=== PATIENT | male | born 1960 | race Caucasian/White ===

== ENCOUNTER 2021-04-02 07:13 | Emergency (ER) | payer OTHER ==
--- NOTE | 2021-04-02 10:31 | RAD REPORT ---
EXAM DESCRIPTION: US - Extremity Nonvascular Limited - 04/02/2021 9:26 am CLINICAL HISTORY: r/o abscess Pain and swelling COMPARISON: No comparisons TECHNIQUE: Real-time sonographic evaluation of the area of interest was performed. FINDINGS: There appears to be a complex 15 mm fluid collection in the area of interest adjacent to a nd abutting bony structures. This likely indicates a joint effusion or septic joint.
--- NOTE | 2021-04-02 10:34 | RAD REPORT ---
EXAM DESCRIPTION: RAD - Hand Left 3 View - 04/02/2021 8:00 am CLINICAL HISTORY: Pain;Swelling COMPARISON: No comparisons FINDINGS: Soft tissue swelling is seen along the posterior aspect of the hand. No soft tissue gas is present. No fracture, dislocation or radiographic findings of osteomyelitis.
[2021-04-02 11:07] LABS: Absolute Lymphocytes (CBC) 1.3 K/uL (0.7-4.9); Basophils % 0.3 % (0-1.3); Hematocrit 47.6 % (39.6-49.0); MPV 7.9 fL (7.6-11.3); RBC Red Blood Cell Count 5.57 M/uL (4.33-5.43)
[2021-04-02 11:25] LABS: C-Reactive Protein 8.86 mg/L (<3.00); Potassium 4.4 mmol/L (3.5-5.1)
--- NOTE | 2021-04-02 12:32 | EDPHYS ---
Physician Documentation [facility] Name: Faheem Wang Age: 61 yrs Sex: Male : 1960 Arrival Date: 04/02/2021 Time: 07:15 Bed 6 Private MD: Bakari Motley R ED Physician Victoriano Lopez HPI: 04/02 07:27 This 61 yrs old Male presents to ER via Unassigned with complaints of Hand kb Swelling. 07:27 The patient or guardian reports pain, swelling. The complaints affect the dorsal aspect kb of proximal phalanx of left middle finger and dorsum of left hand. Context: [place]. Onset: The symptoms/episode began/occurred 2 week(s) ago, and became worse 1 week(s) ago. Modifying factors: The symptoms are alleviated by nothing, the symptoms are aggravated by movement. Associated signs and symptoms: The patient has no apparent associated signs or symptoms. Severity of symptoms: At their worst the symptoms were moderate, in the emergency department the symptoms are unchanged. The patient has not experienced similar symptoms in the past. The patient has been recently seen by a physician: the ER physician, out of Town. Pt reports he was "finned" by a catfish 2 weeks ago onto left middle finger. Reports area started swelling last week after flying to another state. Went to an ER while out of town and they gave him doxycycline. States he got back into town last night so he came in this morning to get it looked at again.. Historical: - Allergies: 07:31 PENICILLINS; ll1 - PMHx: 07:31 None; ll1 - PSHx: 07:31 hernia repair; neck fusion; Appendectomy; ll1 - Immunization history:: Client reports having NOT received the Covid vaccine. Flu vaccine is not up to date. - Social history:: Smoking status: Patient denies any tobacco usage or history of. ROS: 07:31 Constitutional: Negative for fever, chills, and weight loss. kb 07:31 MS/extremity: Positive for pain, swelling, of the dorsum of left hand and dorsal aspect of proximal phalanx of left middle finger. 07:31 All other systems are negative. Exam: 07:30 Constitutional: This is a well developed, well nourished patient who is awake, alert, kb and in no acute distress. Head/Face: Normocephalic, atraumatic. ENT: Moist Mucous membranes Respiratory: Respirations even and unlabored. No increased work of breathing, no retractions or nasal flaring. Neuro: Awake and alert, GCS 15, oriented to person, place, time, and situation. Moves all extremities. Normal gait. Psych: Awake, alert, with orientation to person, place and time. Behavior, mood, and affect are within normal limits. 07:30 Musculoskeletal/extremity: Extremities: grossly normal except: noted in the dorsum of left hand and dorsal aspect of proximal phalanx of left middle finger: pain, swelling, ROM: limited active range of motion due to pain, in the left middle finger, Circulation is intact in all extremities. Sensation intact. 07:30 Skin: Appearance: normal except for affected area, Color: normal in color, swelling, noted on the dorsum of left hand and dorsal aspect of proximal phalanx of left middle finger, that are mild. Vital Signs: 07:29 Temp 98.1; Weight 90.72 kg; Height 5 ft. 11 in. (180.34 cm); ll1 07:35 BP 164 / 104; Pulse 66; Resp 16; Pulse Ox 98% ; ll1 12:00 BP 135 / 89; tr6 07:29 Body Mass Index 27.89 (90.72 kg, 180.34 cm) ll1 MDM: 07:23 Patient medically screened. kb 07:31 Data reviewed: vital signs, nurses notes. Data interpreted: Pulse oximetry: on room air kb is 100 %. Interpretation: normal. ED course: No redness, warmth noted to hand. Patient denies fever or chills.. 11:51 Physician consultation: Severo Ruiz MD was called at 11:52, regarding consult, no kb answer, voicemail left. 12:28 Physician consultation: Severo Ruiz MD was contacted at 12:28, regarding consult, kb and will see patient in office, tomorrow, appt at 0900 tomorrow morning. . 12:29 Counseling: I had a detailed discussion with the patient and/or guardian regarding: the kb historical points, exam findings, and any diagnostic results supporting the discharge/admit diagnosis, lab results, radiology results, the need for outpatient follow up, a hand specialist, to return to the emergency department if symptoms worsen or persist or if there are any questions or concerns that arise at home. 04/02 10:38 Order name: CBC with Diff rn 04/02 10:38 Order name: Basic Metabolic Panel; Complete Time: 11:46 rn 04/02 10:38 Order name: Sed Rate; Complete Time: 11:46 rn 04/02 10:38 Order name: CRP; Complete Time: 11:46 rn 04/02 10:38 Order name: Blood Culture Adult (2) rn 04/02 10:38 Order name: CBC with Automated Diff; Complete Time: 11:46 EDMS 04/02 07:23 Order name: Hand Left 3 View XRAY; Complete Time: 10:35 kb 04/02 09:02 Order name: US Extrmty Nonvasular Limited; Complete Time: 10:33 kb 04/02 10:38 Order name: IV Start; Complete Time: 11:27 rn 04/02 11:54 Order name: COVID-19 : Document "Date of Symptom Onset" if Symptomatic. kb Administered Medications: No medications were administered Disposition: 13:05 Co-signature as Attending Physician, Victoriano Lopez MD I agree with the assessment and rn plan of care. PA/SECURITY INCIDENT RESPONSE ENGINEER's history reviewed, patient interviewed, and examined. HPI: 61-year-old male presents 2 weeks after getting stuck with a catfish pricila. Was given doxycycline at outside ER but still has not gone away. Positive pain with movement and unable to make a fist with that hand. 13:06 PA/SECURITY INCIDENT RESPONSE ENGINEER's history reviewed, patient interviewed, and examined. My personal exam of rn patient reveals: Positive mild swelling dorsum of left hand near the third MCP no palpable foreign body, no fluctuance, unable to make a fist with left hand. No tenderness along flexor surface. I agree with assessment and care plan and confirm the diagnosis (es) above. Disposition Summary: 04/02/21 12:32 Discharge Ordered Location: Home kb Condition: Stable kb Diagnosis - Septic Arthritis kb - Puncture wound without foreign body of left middle finger kb Followup: kb - With: Emergency Department - When: As needed - Reason: Worsening of condition Followup: kb - With: Private Physician - When: 2 - 3 days - Reason: Recheck today's complaints, Continuance of care, Re-evaluation by your physician Followup: kb - With: Severo Ruiz MD - When: Tomorrow - Reason: Discharge Instructions: - Discharge Summary Sheet kb - Septic Arthritis kb - Puncture Wound, [id number] kb Forms: - Medication Reconciliation Form kb - Thank You Letter kb - Antibiotic Education kb - Prescription Opioid Use kb Signatures: Dispatcher [employer] EDMS Randi Wheeler, CURING PRESS MAINTAINER-C CURING PRESS MAINTAINER-Victoriano Serrano MD MD rn Lewis, Lynsay, RN RN ll1 Corrections: (The following items were deleted from the chart) 12:39 11:54 CORONAVIRUS ordered. EDMS EDMS
--- NOTE | 2021-04-02 12:32 | ER ---
Nurse's Notes [facility] Name: Faheem Wang Age: 61 yrs Sex: Male : 1960 Arrival Date: 04/02/2021 Time: 07:15 Bed 6 Private MD: Bakari Motley R Diagnosis: Septic Arthritis;Puncture wound without foreign body of left middle finger Presentation: 04/02 07:29 Chief complaint: Patient states: Catfish fin to L hand near 3rd digit 2 weeks ago. ll1 About 1 week ago it started to get swollen and painful. Went to ER out of state, has been on Doxycycline since. PMS intact. Coronavirus screen: Client denies travel out of the [place] in the last 14 days. At this time, the client does not indicate any symptoms associated with coronavirus-19. Ebola Screen: Patient denies travel to an Ebola-affected area in the 21 days before illness onset. No symptoms or risks identified at this time. Initial Sepsis Screen: Does the patient meet any 2 criteria? No. Patient's initial sepsis screen is negative. Does the patient have a suspected source of infection? Yes: Skin breakdown/wound. Risk Assessment: Do you want to hurt yourself or someone else? Patient reports no desire to harm self or others. Onset of symptoms was March 25, 2021. 07:29 Method Of Arrival: Ambulatory ll1 07:29 Acuity: ZULEYKA 4 ll1 Historical: - Allergies: 07:31 PENICILLINS; ll1 - PMHx: 07:31 None; ll1 - PSHx: 07:31 hernia repair; neck fusion; Appendectomy; ll1 - Immunization history:: Client reports having NOT received the Covid vaccine. Flu vaccine is not up to date. - Social history:: Smoking status: Patient denies any tobacco usage or history of. Screenin:21 Abuse screen: Denies threats or abuse. Denies injuries from another. Nutritional ph screening: No deficits noted. Tuberculosis screening: No symptoms or risk factors identified. Fall Risk None identified. Assessment: 08:20 General: Appears in no apparent distress. comfortable, Behavior is calm, cooperative, ph appropriate for age. Pain: Complains of pain in left hand. Neuro: Level of Consciousness is awake, alert, obeys commands, Oriented to person, place, time, situation. Cardiovascular: Capillary refill < 3 seconds in bilateral fingers Patient's skin is warm and dry. Respiratory: Airway is patent Respiratory effort is even, unlabored. Derm: Skin is healthy with good turgor, Skin is pink, warm \T\ dry. Musculoskeletal: Circulation, motion, and sensation intact. Range of motion: intact in all extremities, Swelling present in left middle finger and dorsum of left hand. Vital Signs: 07:29 Temp 98.1; Weight 90.72 kg; Height 5 ft. 11 in. (180.34 cm); ll1 07:35 BP 164 / 104; Pulse 66; Resp 16; Pulse Ox 98% ; ll1 12:00 BP 135 / 89; tr6 07:29 Body Mass Index 27.89 (90.72 kg, 180.34 cm) ll1 ED Course: 07:15 Patient arrived in ED. mr 07:15 Bakari Motley MD is Private Physician. mr 07:23 [facility]-C [facility] kb 07:23 Victoriano Lopez MD is Attending Physician. kb 07:24 Arm band placed on Patient placed in an exam room, on a stretcher. ll1 07:31 Triage completed. ll1 07:51 Tiff Brito, RN is Primary Nurse. ph 08:00 Hand Left 3 View XRAY In Process Unspecified. EDMS 08:21 Patient has correct armband on for positive identification. Bed in low position. Call ph light in reach. Pulse ox on. NIBP on. Door closed. Noise minimized. 09:26 US Extrmty Nonvasular Limited In Process Unspecified. EDMS 11:00 Inserted saline lock: 18 gauge in right antecubital area, using aseptic technique. tr6 Blood collected. 12:31 No provider procedures requiring assistance completed. tr6 12:33 Severo Ruiz MD is Referral Physician. kb 12:58 IV discontinued, intact, bleeding controlled, No redness/swelling at site. Pressure tr6 dressing applied. Administered Medications: No medications were administered Outcome: 12:32 Discharge ordered by . kb 12:34 Discharged to home ambulatory. tr6 12:34 Condition: good 12:34 Discharge instructions given to patient, Instructed on discharge instructions, follow up and referral plans. medication usage, safety practices. 12:58 Patient left the ED. tr6 Signatures: Dispatcher [employer] EDGA Liam, Randi, DECKHAND CRAB BOAT-C DECKHAND CRAB BOAT-Ckb Efraín, Kallie mr Tiff Brito RN RN ph Angelo, Alex RN RN ll1 Pat Escobedo RN RN tr6
[2021-04-02 13:05] VITALS: TEMP 98.1
[2021-04-02 13:07] VITALS: O2SAT 98
[2021-04-02 13:08] VITALS: BP 135/89
== END 2021-04-02 12:58 | disposition home or self-care (01) ==
LOC: ER 07:13
DX: M00.9 Pyogenic arthritis, unspecified (principal); S61.233A Puncture wound without foreign body of left middle finger without damage to nail, initial encounter; Z20.822 Contact with and (suspected) exposure to COVID-19; W56.59XA Other contact with other fish, initial encounter; Y92.832 Beach as the place of occurrence of the external cause
CPT/HCPCS: 87040 ×2; 85025; 80048; 36415; 85652; 86140; 73130; 76882; U0003; 99284

== ENCOUNTER 2021-04-04 07:37 | Day surgery (SDC) | payer OTHER ==
[2021-04-04 08:11] LABS: Urine Appearance CLEAR (Clear); Urine Bilirubin NEGATIVE (Negative); Urine Blood NEGATIVE (Negative); Urine Color YELLOW (Yellow); Urine Glucose NEGATIVE (Negative); Urine Protein NEGATIVE (Negative); Urine Specific Gravity >=1.030 (1.005-1.030); Urine Urobilinogen 0.2 mg/dL (0.2-1.0)
[2021-04-04 08:15] LABS: Urine Microscopic Reflex NO UMIC
[2021-04-04] MEDS ORDERED: Ringers Lactate 1,000 ML IV ONE (08:42)
[2021-04-04] MEDS ORDERED: CEFAZOLIN/SWI 1gm 0 GM/0 ML SYR ONE (08:43)
--- NOTE | 2021-04-04 08:52 | RAD REPORT ---
EXAM DESCRIPTION: RAD - Chest Single View - 04/04/2021 8:40 am CLINICAL HISTORY: PRE-OP COMPARISON: No comparisons FINDINGS: No evidence of edema or pneumonia. The heart size is within normal limits.No acute osseous abnormality. No significant pleural effusions or pneumothorax. IMPRESSION: No acute cardiopulmonary disease.
[2021-04-04] MEDS ORDERED: ROPLVACAINE HCL 40 ML ONE (09:05)
[2021-04-04] MEDS ORDERED: LIDOCAINE 1% MPF 30 ML VIAL ONE (09:05)
[2021-04-04] MEDS ORDERED: MIDAZOLAM HCL 2 MG/2 ML INJ ONE (09:08)
[2021-04-04] MEDS ORDERED: FENTANYL CITR 100 MCG/2 ML ONE (09:08)
[2021-04-04] MEDS ORDERED: propofoL 200 MG/20 ML VIAL IV ONE (09:08)
[2021-04-04] MEDS ORDERED: dexAMETHasone 10 MG/ML VIAL ONE (09:09)
[2021-04-04] MEDS ORDERED: KETOROLAC 30 MG/ML INJ ONE (09:10)
[2021-04-04] MEDS ORDERED: LIDOCAINE 2% MPF 5 ML VIAL ONE (09:10)
[2021-04-04] MEDS ORDERED: ONDANSETRON 4 MG/2 ML VIAL ONE (09:10)
[2021-04-04] MEDS ORDERED: NS 0.9% VIAL 10 ML ONE (09:13)
[2021-04-04] MEDS ORDERED: CLINDAMYCIN INJ 300 MG in NA CHLORIDE 0.9% 50 ML IV ONE (09:30)
[2021-04-04 10:18] VITALS: O2SAT 100
[2021-04-04 11:23] VITALS: BP 122/82; TEMP 97.2
--- NOTE | 2021-04-05 08:23 | OP ---
Surgeon: Severo Ruiz MD Preoperative Diagnosis: Infection of left index, left middle finger metacarpophalangeal joint. Postoperative Diagnosis: Infection of left index, left middle finger metacarpophalangeal joint. Procedure Performed: Debridement of skin and soft tissue, arthrotomy. Anesthesia: General. Procedure In Detail: After satisfactory induction of general anesthesia left arm was prepped with Be tadine scrub and Betadine paint. Dry sterile drapes were applied in usual manner. Arm was elevated and exsanguinated with an Esmarch, tourniquet inflated to 250 mmHg, Hand was placed on Roto Lock tabl e. Elliptical incision was made over the dorsum the MCP joint of the middle finger, extended proxima lly and distally. After the skin was entered there was cloudy fluid. Cultures were taken. Dissecti on was proceeded down to the central bands. Central bands on this side had been lacerated transverse ly. Central band was released, then along the length of the extensor mechanism allowing exposure to the joint. The joint was boggy with joint opened. There was a cloudy fluid present. Cultures were taken again, the second set. There was erosion of the articular cartilage on the ulnar side of the m etacarpal head, very small area of few millimeter in diameter. No foreign body was identified. Thi kened synovium was biopsied and sent for pathology. Wound was jet lavage, irrigated with 3 L of Beta dine solution. Tourniquet released. Electrocautery was used for hemostasis. Wound packed with quar ter- inch Nu Gauze soaked in Betadine, 2 inch Tahir Kerlix. The patient tolerated procedure well and retu rned to Recovery. ANTHONY/MODL Voice ID: [id number] Report ID: [id number]
--- NOTE | 2021-04-05 17:02 | EKG ---
Test Date: 2021-04-04 Test Time: 07:31:28 Photographic Enlarger Operator: CONNOR MEASUREMENT RESULTS: Intervals: Rate: 63 SD: 166 QRSD: 86 QT: 430 QTc: 440 [place]: P: 45 SD: 166 QRS: 32 T: 4 INTERPRETIVE STATEMENTS: Normal sinus rhythm Normal ECG Compared to ECG 10/28/2013 08:13:10 Sinus bradycardia no longer present Electronically Signed On 04-05-21 16:59:05 CDT by David Christianson
== END 2021-04-04 11:00 | disposition home or self-care (01) ==
LOC: OR 07:37
PROVIDERS: ATTEND Specialist
PROC: 0RBX0ZX Excision of Left Finger Phalangeal Joint, Open Approach, Diagnostic (ICD-10-PCS; principal; 2021-04-04 09:00)
DX: S61.201A Unspecified open wound of left index finger without damage to nail, initial encounter (principal); L08.9 Local infection of the skin and subcutaneous tissue, unspecified
CPT/HCPCS: 26110; 93005; 87070 ×2; 87205 ×2; 88304; 87075 ×2; 81003; 71045; J2704; J2250; J3010; J1100; J2795; J7120; J2405; J0690

== ENCOUNTER → 2021-04-06 | Day surgery (SDC) | payer OTHER ==
[~2021-04-06] MED LIST: CLINDAMYCIN INJ 300 MG in NA CHLORIDE 0.9% 50 ML IV ONE; FENTANYL CITR 100 MCG/2 ML ONE; HYDROCODONE/APAP 10/325 TAB ONE; KETOROLAC 30 MG/ML INJ ONE; LIDOCAINE 2% MPF 5 ML VIAL ONE; MIDAZOLAM HCL 2 MG/2 ML INJ ONE; ONDANSETRON 4 MG/2 ML VIAL ONE; Ringers Lactate 1,000 ML IV ONE; dexAMETHasone 10 MG/ML VIAL ONE; propofoL 200 MG/20 ML VIAL IV ONE
[2021-04-06 10:36] VITALS: BP 133/80; TEMP 97.5; O2SAT 99
--- NOTE | 2021-04-10 10:29 | OP ---
Surgeon: Severo Ruiz MD Preoperative Diagnosis: Open wound of the left middle finger, metacarpal head. Postoperative Diagnosis: Open wound of the left middle finger, metacarpal head. Procedure Performed: Debridement of skin and soft tissue. Repair of sagittal band, simple closure, 6 cm. Anesthesia: General. Operative Note: After satisfactory induction of general anesthesia, the hand was prepped with Betadi ne scrub and Betadine paint. Dry sterile drapes were applied in the usual manner. The arm was eleva nahed, exsanguinated with an Esmarch, tourniquet inflated to 250 mmHg. Hand placed on a Roto Lock tabl e. Forceps and curette were used to debride skin and subcu tissue as needed. The patient had open j oint of the ulnar aspect of the MCP and jet lavage was performed. The sagittal band was then cut out . Exposure was then repaired with 5-0 PDS. Tourniquet released. Electrocautery was used for hemost asis. The wound was closed with 4-0 Prolene vertical mattress, dressed with Xeroform, 2 inch Tahir. The patient tolerated the procedure well and returned to recovery. ANTHONY/HERI Voice ID: [id number] Report ID: [id number]
== END ==
LOC: OR 07:54
PROVIDERS: ATTEND Specialist
PROC: 0MQ80ZZ Repair Left Hand Bursa and Ligament, Open Approach (ICD-10-PCS; principal; 2021-04-06 09:00)
DX: S61.203A Unspecified open wound of left middle finger without damage to nail, initial encounter (principal)
CPT/HCPCS: 26540; J2704; J2250; J3010; J1100; J7120; J2405